=== PATIENT | female | born 1930 | race Caucasian/White ===

== ENCOUNTER 2016-11-26 15:36 | Emergency (ER) | payer MEDICARE, OTHER ==
[~2016-11-26] VITALS: Ht 157.5 cm; Wt 74.0 kg
[~2016-11-26 15:36] MED LIST: AUGMENTIN500TAB PO; CALCIUM600 MG PO; CETIRIZ/PSE1 TAB PO; CETIRIZINE HCL10 MG PO; EQL ASPIRIN81 MG PO; EVENING PRIMROSE OIL PO; FLONASE NASAL50 MCG; FLUARIX QUADRIV1 INJ IM; HYDROCHLORO25 MG/TAB PO; ICAPS PO; LISINOPRIL20 M1 PO; LOVASTATIN40 MG PO; Levaquin PO; MEDDOSEPAK PO; MELOXICAM15 MG PO; NITROSTAT0.4 MG SL; NORVASC10 M1 PO; NORVASC5 M1 PO; NORVASC5 MG PO; PENNSAID TD; PRAVASTATIN20 MG PO; PRAVASTATIN40 MG PO; PREMARIN VAG0.625 MG VA; PREVNAR 13 IM; PROLIA60 MG/ML SC; ROBITUSSIN AC10 ML PO; TESSALON PER100 MG PO; VESICARE10 MG PO; ZPAK PO; ZYRTEC10 M3 PO
[2016-11-26] MEDS ORDERED: BIOTIN1 MG PO (15:50)
[2016-11-26] MEDS ORDERED: TRAMADOL HYDROC50 MG PO (16:00)
[2016-11-26] MEDS ORDERED: PREDNISONE50 MG PO (16:00)
[2016-11-26 16:03] VITALS: BP 112/68
[2016-11-26] MEDS ORDERED: MOTRIN800 MG PO (16:21)
== END 2016-11-26 16:18 | disposition home or self-care (01) ==
LOC: ED 15:36
DX: M54.31 Sciatica, right side (principal); M79.604 Pain in right leg

== ENCOUNTER → 2018-07-25 | Outpatient (REF) | payer MEDICARE, OTHER ==
[~2018-07-25] MED LIST changes: +BIOTIN1 MG PO; +MOTRIN800 MG PO; +PREDNISONE50 MG PO; +TRAMADOL HYDROC50 MG PO
[2018-07-25 08:42] LABS: ALBUMIN 4.4 g/dL (3.2-5.0); CREATININE 1.1 mg/dL (0.5-1.0); POTASSIUM 4.9 mmol/l (3.5-5.1)
== END | disposition home or self-care (01) ==
LOC: LAB 06:51
PROVIDERS: ATTEND Internal Medicine
DX: N18.3 Chronic kidney disease, stage 3 (moderate) (principal)